=== PATIENT | male | born 1950 | race Caucasian/White ===

== ENCOUNTER 2019-01-24 08:25 | Observation (INO) ==
[2019-01-24 08:57] LABS: Basophils % 0.3 % (0.0-0.8); Eosinophils % 0.7 % (0.00-10.9); Hematocrit 44.8 VOL% (42.0-52.0); Immature Granulocytes % 0.5 %; Immature Granulocytes Absolute 0.03 #; Lymphocytes # 1.3 10*3/uL (1.4-4.0); Lymphocytes % 21.5 % (21.2-54.2); Mean Corpuscular HGB Conc 33.5 GM/DL (32-36); Mean Corpuscular Hemoglobin 29 PG (27-34); Mean Corpuscular Volume 87.8 FL (87-102); Mean Platelet Volume 10.2 FL (9.6-12.0); Monocytes # 0.7 10*3/uL (0.11-0.8); Monocytes % 12.1 % (1.7-12.7); Neutrophils # 3.9 10*3/uL (1.4-7.4); Neutrophils % 64.9 % (38.7-73.9); Platelet Count 222 T/CUMM (130-400); Red Cell Distribution Width 12.3 % (9.3-17.3); White Blood Count 6.1 T/CUMM (4-12)
[2019-01-24 09:06] LABS: INR 0.9; PT Patient Result 9.9 SECS; Partial Thromboplastin Time 25.7 SECS (0-40)
[2019-01-24 09:20] LABS: Albumin 4.1 G/DL (3.4-5.0); Bilirubin,Total 0.5 MG/DL (0.2-1.0); Calcium 9.1 MG/DL (8.5-10.1); Osmolality,Calculated 275.2 MOS/KG (273-304); Total Protein 8.1 G/DL (6.4-8.3)
[2019-01-24] MEDS ORDERED: ASPIRIN 325 MG TABLET PO STA (09:40)
[2019-01-24] MEDS ORDERED: MORPHINE 4 MG/1 ML VIAL IV STA (09:40)
[2019-01-24] MEDS ORDERED: ONDANSETRON 4 MG/2 ML VIAL IV STA (09:40)
[2019-01-24] MEDS ORDERED: NITROGLYCERIN 2% OINT 1 INCH/GM PACK TOP STA (09:40)
[2019-01-24] MEDS ORDERED: ACETAMINOPHEN 325 MG TABLET PO PRN (10:44)
[2019-01-24] MEDS ORDERED: ONDANSETRON 4 MG/2 ML VIAL IV PRN (10:44)
[2019-01-24] MEDS ORDERED: BISACODYL 5 MG TABLET PO PRN (10:44)
[2019-01-24] MEDS ORDERED: MORPHINE 4 MG/1 ML VIAL IV PRN (10:44)
[2019-01-24] MEDS ORDERED: GLUCAGON 1 MG VIAL IM PRN (10:48)
[2019-01-24] MEDS ORDERED: DEXTROSE 50% 25 GM/50 ML VIAL IV PRN (10:48)
[2019-01-24 11:17] LABS: Risk Ratio 3.14; VLDL CHOLESTEROL 23.4 MG/DL
[2019-01-24] MEDS: ENOXAPARIN 40 MG/0.4 ML SYRINGE SUBCUT SCH (12:15)
[2019-01-24] MEDS: PANTOPRAZOLE 40 MG TABLET PO SCH (12:15)
[2019-01-24] MEDS ORDERED: PNEUMOCOCCAL VACCINE (13 VALENT) 0.5 ML SYRINGE IM ONE (14:12)
[2019-01-24] MEDS ORDERED: INFLUENZA VIRUS VACCINE 0.5 ML SYRINGE IM ONE (14:12)
[2019-01-24] MEDS: LISINOPRIL 20 MG TABLET PO SCH (15:03)
[2019-01-24] MEDS: INSULIN LISPRO 100 UNIT/ML SUBCUT SCH ×3 (15:22→22:20)
[2019-01-24] MEDS ORDERED: metFORMIN 500 MG TABLET PO SCH (17:00)
[2019-01-24] MEDS ORDERED: ALUM/MAG/SIMETH/LIDO VISC 1:1 30 ML BOTTLE PO ONE (17:18)
[2019-01-24] MEDS ORDERED: ATORVASTATIN 40 MG TABLET PO SCH (21:00)
[2019-01-24] MEDS ORDERED: ATORVASTATIN 80 MG TABLET PO SCH (21:00)
[2019-01-24] MEDS: CARVEDILOL 3.125 MG TABLET PO SCH (22:21)
[2019-01-25 05:13] LABS: Basophils % 0.5 % (0.0-0.8); Eosinophils # 0.1 10*3/uL (0.0-0.87); Hematocrit 42.9 VOL% (42.0-52.0); Hemoglobin 14.1 GM/DL (14.0-18.0); Immature Granulocytes % 0.2 %; Immature Granulocytes Absolute 0.01 #; Lymphocytes # 1.8 10*3/uL (1.4-4.0); Lymphocytes % 31.2 % (21.2-54.2); Mean Corpuscular HGB Conc 32.9 GM/DL (32-36); Mean Corpuscular Hemoglobin 29 PG (27-34); Mean Corpuscular Volume 89.4 FL (87-102); Mean Platelet Volume 9.9 FL (9.6-12.0); Monocytes # 0.8 10*3/uL (0.11-0.8); Monocytes % 13.8 % (1.7-12.7); Neutrophils # 3.1 10*3/uL (1.4-7.4); Neutrophils % 53.3 % (38.7-73.9); Platelet Count 178 T/CUMM (130-400); Red Cell Distribution Width 12.5 % (9.3-17.3); White Blood Count 5.7 T/CUMM (4-12)
[2019-01-25 05:23] LABS: Calcium 8.6 MG/DL (8.5-10.1); Potassium 4.3 MMOL/L (3.5-5.1)
[2019-01-25] MEDS: INSULIN LISPRO 100 UNIT/ML SUBCUT SCH ×2 (08:26→12:10)
[2019-01-25] MEDS: LISINOPRIL 20 MG TABLET PO SCH (08:28)
[2019-01-25] MEDS: CARVEDILOL 3.125 MG TABLET PO SCH (08:29)
[2019-01-25] MEDS: PANTOPRAZOLE 40 MG TABLET PO SCH (08:30)
[2019-01-25] MEDS ORDERED: ASPIRIN CHEW 81 MG TABLET PO SCH (09:00)
[2019-01-25] MEDS ORDERED: ROSUVASTATIN 20 MG TABLET PO SCH (09:00)
[2019-01-25 09:07] VITALS: BP 107/64
[2019-01-25] MEDS: ENOXAPARIN 40 MG/0.4 ML SYRINGE SUBCUT SCH (12:10)
== END 2019-01-25 11:37 | disposition home or self-care (01) ==
LOC: N.ED 08:25 → N.EDINP 08:25 → N.TELEN 13:54
PROVIDERS: ADMIT Internal Medicine; ATTEND Internal Medicine